=== PATIENT | male | born 1930 | race Caucasian/White ===

== ENCOUNTER 2017-01-30 07:38 | Day surgery (SDC) | payer MEDICARE, OTHER ==
[2017-01-30] MEDS ORDERED: Lactated Ringers 1,000 ML IV SCH (07:45)
[2017-01-30] MEDS ORDERED: Sodium Chloride 0.9% 10 ML Syringe FLUSH PRN (07:45)
[2017-01-30] MEDS ORDERED: Propofol 200 MG/20 ML SDV IV ONE (09:00)
[2017-01-30] MEDS ORDERED: Lidocaine 2% 100 MG/5 ML Syringe IVPUSH ONE (09:00)
--- NOTE | 2017-01-30 09:35 | PCM.OPNOTE ---
- General Post-Op/Procedure Note Date of Surgery/Procedure: 01/30/17 Operative Procedure(s): EGD WITH BX. C SCOPE Findings: gastroduodenitis normal colon Pre Op Diagnosis: anemia Post-Op Diagnosis: gastroduodenitis. normal colon Anesthesia Technique: MAC Primary Surgeon: Javier Olvera Anesthesia Provider: Dallas Bender Pathology: stomach and duodenum Complications: None Condition: Good Free Text/Narrative:: see dictation
--- NOTE | 2017-01-30 12:11 | OR ---
DATE OF OPERATION: 01/30/2017 SURGEON: Javier Olvera MD PROCEDURE PERFORMED: Upper endoscopy with cold forceps biopsy and colonoscopy. PREOPERATIVE DIAGNOSIS: Anemia. POSTOPERATIVE DIAGNOSIS: Mild gastroduodenitis and normal colon. INDICATIONS FOR PROCEDURE: This is an 86-year-old white male, who has a history of colon polyps in the past. He has been noted to have a low-grade anemia. He was offered and accepted an upper and lower endoscopy as part of his workup. He does have a history of gastroduodenitis as well. DESCRIPTION OF OPERATION: After an excellent IV sedation was administered, bite block was inserted. The flexible endoscope was passed without difficulty down the patient's esophagus and into the stomach. The stomach was insufflated. The scope was passed through the pylorus to the second portion of the duodenum and slowly withdrawn. The following findings were noted: First portion of duodenum, mild duodenitis. Stomach, mild gastritis. Biopsies were taken of both these structures. The esophagus was unremarkable. The stomach was deflated. The scope was removed. Our attention was then turned to the colon. Digital rectal exam was performed. No marked abnormality was noted. Flexible colonoscope was inserted and advanced to the cecum without difficulty. The following findings were noted: Ascending colon, unremarkable. Transverse colon, unremarkable. Descending colon, unremarkable. Sigmoid and rectum, unremarkable. Colon was deflated. The scope was removed. The patient tolerated the procedure well and was taken to the recovery room in good condition. /[id number] /VANESSAL
[2017-01-30 12:42] VITALS: BP 175/87
== END 2017-01-30 10:49 | disposition home or self-care (01) ==
LOC: FB.SDS 07:38
PROVIDERS: ATTEND Surgery
DX: Z12.11 Encounter for screening for malignant neoplasm of colon (principal); K29.40 Chronic atrophic gastritis without bleeding; K29.80 Duodenitis without bleeding; K21.9 Gastro-esophageal reflux disease without esophagitis; D50.0 Iron deficiency anemia secondary to blood loss (chronic); N40.1 Benign prostatic hyperplasia with lower urinary tract symptoms; R03.0 Elevated blood-pressure reading, without diagnosis of hypertension; F32.9 Major depressive disorder, single episode, unspecified; Z86.010 Personal history of colon polyps; Z79.82 Long term (current) use of aspirin; Z79.899 Other long term (current) drug therapy
CPT/HCPCS: 00810; 43239; 45378; 88305; 88342; J2704; J7120

== ENCOUNTER 2021-08-02 16:23 | Emergency (ER) | payer MEDICARE, OTHER ==
[2021-08-02 16:59] LABS: ESTIMATED GFR 58 mL/min (>60)
[2021-08-02 17:26] VITALS: BP 161/81; PULSE 64
[2021-08-02] MEDS ORDERED: Sodium Chloride 0.9% 10 ML Syringe FLUSH PRN (17:54)
[2021-08-02] MEDS ORDERED: Iopamidol 755 Mg/ML 100 ML Bottle IV ONE (18:06)
== END 2021-08-02 19:20 | disposition home or self-care (01) ==
LOC: FB.ED 16:23
DX: U07.1 COVID-19 (principal); R09.1 Pleurisy; I10 Essential (primary) hypertension; K21.9 Gastro-esophageal reflux disease without esophagitis; E66.9 Obesity, unspecified; Z79.82 Long term (current) use of aspirin; Z79.899 Other long term (current) drug therapy
CPT/HCPCS: 36415; 71045; 71275; 80053; 81001; 84484; 85025; 85379; 99284; Q9967